=== PATIENT | male | born 1985 | race African-American/Black ===

== ENCOUNTER 2023-10-18 11:12 | Emergency (ER) | payer MEDICAID ==
[~2023-10-18] VITALS: Ht 177.8 cm; Wt 81.8 kg
[2023-10-18 11:25] VITALS: BP 116/60; PULSE 64; RESP 14; TEMP 98.6
[2023-10-18] MEDS ORDERED: SULF-261 PO (14:36)
[2023-10-18] MEDS ORDERED: CEPH-558 PO (14:36)
== END 2023-10-18 14:43 | disposition home or self-care (01) ==
LOC: EMS 11:12
DX: S61.432A Puncture wound without foreign body of left hand, initial encounter (principal); X58.XXXA Exposure to other specified factors, initial encounter; Y93.89 Activity, other specified; Y92.89 Other specified places as the place of occurrence of the external cause; Y99.8 Other external cause status
CPT/HCPCS: 99283